=== PATIENT | male | born 1985 | race Caucasian/White ===

== ENCOUNTER 2018-03-01 11:41 | Emergency (ER) | payer MEDICARE, SELFPAY ==
[2018-03-01 11:42] VITALS: BP 122/69; PULSE 83; RESP 16; TEMP 37.1; O2SAT 98; BMI 31.1
--- NOTE | 2018-03-01 11:59 | ED.VISSUMM ---
- ER Visit Summary Date of Service: 03/01/18 Chief Complaint: Lower back pain History of Present Illness: The patient is a 32 M with a history of chronic lumbar back pain since age 17 when he suffered a fall. He had an MRI that revealed 2 abnormal discs at that time. He has not followed up but he has had continued low back pain nearly every day since then since then, sometimes worse when he does a lot of lifting. He states that he has been lifting heavy boxes recently. The pain is worse when he bends forward and lifts. It occasionally radiates down both buttocks. No bowel bladder dysfunction. No groin paresthesias. Physical Examination: He has paraspinal lumbar tenderness bilaterally but worse on the right. No midline tenderness, erythema, or fluctuance. There is normal strength and sensation in both lower extremities. No clonus. Negative Babinski's. Reflexes are normal and symmetric. Test Results: None performed Emergency Department Course and Treatment: No evidence of cauda equina syndrome or paraspinal/epidural abscess. His pain was addressed with Norflex and Toradol. This is a chronic recurrent issue. I highly encouraged him to call his primary care physician today to get set up for an outpatient MRI but I do not feel he needs an emergent MRI. He will be given prescriptions. Treatment Plan: Prescriptions for Medrol Dosepak, naproxen, and Zanaflex. Follow up closely with his doctor. Disposition: Home stable condition Impression: Initial encounter acute on chronic back pain This note was generated with [employer] dictation software. It may contain incorrect words, spelling, and punctuation that were not noted in review of the chart prior to signing ED Disposition - Plan for ED Patient: Chief Complaint: Back Instructions: ED Low Back Pain Injury Prescriptions: MethylPREDNISolone DosePak [Medrol DosePak] 4 mg PO UD #1 box Naproxen [Naprosyn] 500 mg PO BID PRN #20 tablet Tizanidine HCl [Zanaflex] 4 mg PO TID #30 tablet Referrals: Care Physician,No Primary [Primary Care Provider] -
--- NOTE | 2018-03-01 12:05 | ED.DCSUM_ITS ---
- ER Visit Summary Date of Service: 03/01/18 Chief Complaint: Lower back pain History of Present Illness: The patient is a 32 M with a history of chronic lumbar back pain since age 17 when he suffered a fall. He had an MRI that revealed 2 abnormal discs at that time. He has not followed up but he has had continued low back pain nearly every day since then since then, sometimes worse when he does a lot of lifting. He states that he has been lifting heavy boxes recently. The pain is worse when he bends forward and lifts. It occasionally radiates down both buttocks. No bowel bladder dysfunction. No groin paresthesias. Physical Examination: He has paraspinal lumbar tenderness bilaterally but worse on the right. No midline tenderness, erythema, or fluctuance. There is normal strength and sensation in both lower extremities. No clonus. Negative Babinski 's. Reflexes are normal and symmetric. Test Results: None performed Emergency Department Course and Treatment: No evidence of cauda equina syndrome or paraspinal/epidural abscess. His pain was addressed with Norflex and Toradol. This is a chronic recurrent issue. I highly encouraged him to call his primary care physician today to get set up for an outpatient MRI but I do not feel he needs an emergent MRI. He will be given prescriptions. Treatment Plan: Prescriptions for Medrol Dosepak, naproxen, and Zanaflex. Follow up closely with his doctor. Disposition: Home stable condition Impression: Initial encounter acute on chronic back pain This note was generated with [employer] dictation software. It may contain incorrect words, spelling, and punctuation that were not noted in review of the chart prior to signing ED Disposition - Plan for ED Patient: Chief Complaint: Back Instructions: ED Low Back Pain Injury Prescriptions: MethylPREDNISolone DosePak [Medrol DosePak] 4 mg PO UD #1 box Naproxen [Naprosyn] 500 mg PO BID PRN #20 tablet Tizanidine HCl [Zanaflex] 4 mg PO TID #30 tablet Referrals: Care Physician,No Primary [Primary Care Provider] -
[2018-03-01] MEDS: Ketorolac 60 MG/2 ML Vial IM (12:09)
[2018-03-01] MEDS: Orphenadrine 60 MG/2 ML Ampul IM (12:10)
[2018-03-01 12:49] VITALS: PULSE 86; RESP 17; O2SAT 98
== END 2018-03-01 12:50 | disposition home or self-care (01) ==
LOC: ED 12:36
PROVIDERS: Emergency Provider Emergency Medicine; Family Provider Family Medicine; PCP Family Medicine
DX: G89.29 Other chronic pain (principal); M54.5 Low back pain; J45.909 Unspecified asthma, uncomplicated; Z72.0 Tobacco use
CPT/HCPCS: 99282

== ENCOUNTER 2018-03-05 10:42 | Emergency (ER) | payer MEDICARE, SELFPAY ==
[2018-03-05 10:43] VITALS: BP 124/64; PULSE 93; RESP 16; TEMP 37.2; O2SAT 98; BMI 30.8
--- NOTE | 2018-03-05 10:52 | ED.DCSUM_ITS ---
- ER Visit Summary Date of Service: 03/05/18 Chief Complaint: Cough, sore throat, sinus infection History of Present Illness: The patient is a 32 M who presents with the above complaints. Is been ongoing for 2 days. He states he has had sinus congestion, sore throat and a cough. His cough is productive of sputum. Throat hurts worse with swallowing. He did not check his temperature at home. He also complained of some body aches. He tried using Mucinex without relief. He states he had similar symptoms 3 weeks ago that improved with using eardrops. Physical Examination: Vital signs reviewed. HEENT exam shows swollen turbinates. He also has posterior oropharyngeal erythema. There is no tonsillar swelling or exudates. Heart is regular rate and rhythm without murmurs. Lungs are clear to auscultation. Abdomen is soft and nontender. Extremities reveal no edema. Skin exam normal. Neurologic exam normal. Test Results: None performed Emergency Department Course and Treatment: Patient likely has a viral etiology to his URI. I do not feel antibiotics are necessary at this time. He has normal vital signs and I do not feel the rapid strep or a chest x-ray as needed. He will be treated with Sudafed and Tessalon Perles. He will follow-up with his primary care physician. Treatment Plan: [] Disposition: Discharge Impression: Viral URI with cough This note was generated with [employer] dictation software. It may contain incorrect words, spelling, and punctuation that were not noted in review of the chart prior to signing ED Disposition - Plan for ED Patient: Chief Complaint: General Illness Referrals: Rei Saul MD [Primary Care Provider] -
--- NOTE | 2018-03-05 10:52 | ED.DEP ---
ED Disposition - Plan for ED Patient: Disposition: Home or Assisted Living Chief Complaint: General Illness Instructions: ED Upper Resp Infec No Abx Tx Prescriptions: Benzonatate [Tessalon Perle] 200 mg PO TID PRN PRN #20 cap PRN Reason: Cough Pseudoephedrine HCl [Sudafed 12 Hour] 120 mg PO Q12H #14 tablet.er Referrals: Rei Saul MD [Primary Care Provider] -
== END 2018-03-05 10:58 | disposition home or self-care (01) ==
PROVIDERS: Emergency Provider Emergency Medicine; Family Provider Family Medicine; PCP Family Medicine
DX: J06.9 Acute upper respiratory infection, unspecified (principal); R05 Cough; J45.909 Unspecified asthma, uncomplicated; Z72.0 Tobacco use
CPT/HCPCS: 99282

== ENCOUNTER → 2018-03-21 17:29 | Outpatient (CLI) | payer MEDICARE, SELFPAY ==
--- NOTE | 2018-03-21 17:43 | RAD_ITS ---
STUDY: X-RAY - LUMBAR SPINE REASON FOR EXAM: Male, 32 years old. Pain TECHNIQUE: 5 view(s) of the lumbar spine were obtained. COMPARISON: None FINDINGS: Normal lumbar lordosis. There is no substantial scoliosis. There is a normal alignment of the vertebrae. Normal vertebral bodies. Mild spurring from T12 to L2 endplates. Normal disc space heights. The soft tissue structures are unremarkable. RAD/L/S Spine Min 4 Views IMPRESSION: Mild degenerative changes of the lumbar spine. Electronically Signed: Naga Benites DO at 22:49 EDT Tel [phone], Service support ,
== END ==
PROVIDERS: Family Provider Family Medicine; PCP Family Medicine; Visit Provider Family Medicine
DX: M54.5 Low back pain (principal); G89.29 Other chronic pain
CPT/HCPCS: 72110

== ENCOUNTER → 2018-04-01 17:13 | Outpatient (CLI) | payer MEDICARE, SELFPAY ==
--- NOTE | 2018-04-01 17:16 | MRI_ITS ---
STUDY: MRI LUMBAR SPINE WITHOUT CONTRAST REASON FOR EXAM: Male, 32 years old. Low back pain and sciatica TECHNIQUE: Standardized fat and water weighted pulse sequences were obtained in the sagittal and axial planes. COMPARISON: None FINDINGS: T12-L1: Normal endplates. Normal disc height, hydration and morphology. Normal bilateral facet joints. Normal central canal and bilateral lateral recesses. Normal bilateral intervertebral neural foramina. Normal lumbar lordosis. There is no substantial scoliosis. Normal conus medullaris that terminates at T12-L1 L1-2: Normal endplates. Normal disc height, hydration and morphology. Normal bilateral facet joints. Normal central canal and bilateral lateral recesses. Normal bilateral intervertebral neural foramina. L2-3: Normal endplates. Normal disc height, hydration and morphology. Normal bilateral facet joints. Normal central canal and bilateral lateral recesses. Normal bilateral intervertebral neural foramina. L3-4: Normal endplates. Normal disc height, hydration and minimal annular bulge.. Normal bilateral facet joints. Normal central canal and bilateral lateral recesses. Normal bilateral intervertebral neural foramina. L4-5: Normal endplates. Normal disc height, hydration and minimal annular bulge.. Normal bilateral facet joints. Normal central canal and bilateral lateral recesses. Normal bilateral intervertebral neural foramina. L5-S1: Normal endplates. Normal disc height, hydration and minimal annular bulge. Normal bilateral facet joints. Normal central canal and bilateral lateral recesses. Normal bilateral intervertebral neural foramina. Normal visualized sacral ala. Small Tarlov cyst in the sacral canal likely of no significance Normal visualized paraspinous soft tissue structures. MRI/Spine Lumbar (Routine) IMPRESSION: No evidence for acute fracture or other significant bony pathology. Minimal bulging annuli at L3-4 and L4-5 and L5-S1 without evidence for spinal stenosis Electronically Signed: Azar Taylor MD at 18:19 EDT , Service support ,
== END ==
PROVIDERS: Family Provider Family Medicine; PCP Family Medicine; Referring Provider Family Medicine; Visit Provider Family Medicine
DX: M54.5 Low back pain (principal); G89.29 Other chronic pain
CPT/HCPCS: 72148

== ENCOUNTER 2018-07-13 12:36 | Emergency (ER) | payer MEDICARE, SELFPAY ==
[2018-07-13 12:37] VITALS: BP 130/62; PULSE 71; RESP 16; TEMP 36.7; O2SAT 97; BMI 33.2
--- NOTE | 2018-07-13 13:15 | ED.DCSUM_ITS ---
- ER Visit Summary Date of Service: 07/13/18 Chief Complaint: Diarrhea History of Present Illness: The patient is a 32 M presenting with diarrhea for the past week. Patient states he had 2 episodes of diarrhea today. He had 5-6 episodes of diarrhea yesterday. He denies vomiting, complains of nausea. He denies abdominal pain. Denies fever. He denies sick contacts. He has not had any recent antibiotics. Denies possibility of bad food exposure. Denies other complaints. Physical Examination: Vitals are stable. Patient is afebrile. Alert no acute distress. HEENT exam is unremarkable. Neck is supple. Lungs are clear and equal bilaterally. Heart is regular rate and rhythm. Abdomen is soft nontender nondistended. No rebound or guarding Extremities are unremarkable. Skin is warm and dry. Remainder of exam is unremarkable. Emergency Department Course and Treatment: Patient was given IV fluids, Zofran. CBC, chemistries unremarkable. Stool studies were sent. Patient is advised to continue drinking plenty of fluids. He is given a prescription for Zofran. Advised to follow-up with Dr. Mejía employee relations director for no doc. Advised return to ED if worsening complaints. Disposition: Discharge home Impression: Diarrhea This note was generated with [employer] dictation software. It may contain incorrect words, spelling, and punctuation that were not noted in review of the chart prior to signing ED Disposition - Plan for ED Patient: Instructions: ED Vomiting Diarrhea Nonspecific Ad Prescriptions: Ondansetron [Zofran Odt] 4 mg PO Q8H PRN PRN #10 tablet PRN Reason: Nausea Referrals: Rajan Mejía DO [STAFF PHYSICIAN] -
[2018-07-13 13:33] LABS: Absolute Lymphocyte Count 1.61 X10^3/ul (0.83-4.51); Absolute Neutrophil Count 4.1 X10^3/uL (2.0-7.7); Basophil# 0.03 X10^3/uL; Basophil% 0.5 % (0-1); Hematocrit 45.2 % (40-54); Hemoglobin 16.4 g/dl (13.0-16.5); Lymphocyte # 1.61 X10^3/ul (4.0); Lymphocyte % 26.2 % (19-41); Mean Corp Hgb Conc 36.3 g/gl (32-36); Mean Corpuscular Hgb 31.2 pg (27.0-32.0); Mean Corpuscular Volume 85.9 fL (80-94); Mean Platelet Vol. 10.4 fl (6.2-12.0); Monocyte# 0.43 X10^3/uL; Neutrophil # 4.07 X10^3/uL (2.7-7.7); Neutrophil % 66.3 % (47-70); Platelet Count 226 K/mm3 (150-450); RBC Distribution Width CV 12.6 % (11.6-14.6); RBC Distribution Width SD 39.6 fl (35.1-43.9); Red Blood Count 5.26 M/mm3 (4.6-6.2); White Blood Count 6.1 K/mm3 (4.4-11.0)
[2018-07-13 13:34] LABS: POSITIVE COUNT NO; POSITIVE DIFFERENTIAL NO; POSITIVE MORPHOLOGY NO
[2018-07-13] MEDS: Ondansetron 4 MG/2 ML Vial IV (13:34)
[2018-07-13] MEDS: 0.9% Normal Saline 1,000 ML 1000 ML IV (13:34)
[2018-07-13 13:50] LABS: Anion Gap 7 (5-15); BUN 12 mg/dL (7-18); Chloride 107 mmol/L (98-107); EST Glomerular Filtration Rate 92 mL/min (>60); Est Glom Filt Rate - Afr Amer 112 mL/min (>60); Estimated Creatinine Clearance 96.59 ml/min; Glucose 79 mg/dL (74-106); Potassium 3.9 mmol/L (3.5-5.1); Sodium Level 144 mmol/L (136-145)
--- NOTE | 2018-07-13 13:55 | ED.DEP ---
ED Disposition - Plan for ED Patient: Instructions: ED Vomiting Diarrhea Nonspecific Ad Prescriptions: Ondansetron [Zofran Odt] 4 mg PO Q8H PRN PRN #10 tablet PRN Reason: Nausea Referrals: Rajan Mejía DO [STAFF PHYSICIAN] -
[2018-07-13 14:18] VITALS: BP 110/61; PULSE 57; RESP 16; O2SAT 99
== END 2018-07-13 14:19 | disposition home or self-care (01) ==
PROVIDERS: Emergency Provider Emergency Medicine
DX: R19.7 Diarrhea, unspecified (principal); R11.0 Nausea; Z72.0 Tobacco use
CPT/HCPCS: 80048; 85025; 87493; 87506; 96361; 96374; 99283; J7030; J2405

== ENCOUNTER 2018-09-09 11:50 | Emergency (ER) | payer MEDICARE, SELFPAY ==
[2018-09-09 11:51] VITALS: BP 119/75; PULSE 71; RESP 17; TEMP 36.3; O2SAT 99; BMI 33.0
--- NOTE | 2018-09-09 12:31 | RAD_ITS ---
STUDY: X-RAY - LEFT ANKLE REASON FOR EXAM: Male, 32 years old. Pain. No known injury. TECHNIQUE: 3 view(s) of the ankle. COMPARISON: None. FINDINGS: Normal visualized distal tibia and fibula. Normal medial and lateral malleoli. Normal tibiotalar articulation and ankle mortise. Normal visualized talus and calcaneus. The visualized subtalar, talonavicular, calcaneocuboid and tarsal articulations are normal. The soft tissue structures are unremarkable. RAD/Ankle min 3 Views IMPRESSION: Normal x-ray examination of the ankle. Electronically Signed: Justin Harrison, at 13:26 EDT , Service support ,
--- NOTE | 2018-09-09 12:31 | ED.VISSUMM ---
- ER Visit Summary Date of Service: 09/09/18 Chief Complaint: Left foot pain History of Present Illness: The patient is a 32 M who presents with left foot pain that began yesterday while playing paint ball. Patient is unsure exactly how he injured it. Patient states the pain is worse today. Patient states the pain is worse with weightbearing. Patient denies any paresthesias or weakness. Patient describes pain as aching and throbbing. Patient denies any pain over the proximal fibula. Physical Examination: No signs are stable. Patient is afebrile. Patient is in no acute distress. Musculoskeletal exam reveals tenderness over the left ankle and hindfoot. There is no edema noted. There is no bony crepitance or step-off noted. There is no deformity noted. Range of motion was limited in all motions of the left ankle secondary to pain. Pedal pulses were equal bilateral. Sensation was intact to light touch in all digits. Test Results: X-rays of the left ankle were obtained. There is no acute fracture noted. Emergency Department Course and Treatment: Patient was given an Aircast. Patient was instructed to ice and elevate the left ankle. Patient was given a prescription for Naprosyn. Patient was instructed to follow-up with his primary care physician in 5-7 days. Patient understood and was agreeable with the plan. All questions were answered. Disposition: Discharge home Impression: Left ankle sprain This note was generated with [employer] dictation software. It may contain incorrect words, spelling, and punctuation that were not noted in review of the chart prior to signing ED Disposition - Plan for ED Patient: Disposition: Home or Assisted Living Instructions: ED Sprain Ankle W X Ray Prescriptions: Naproxen [Naprosyn] 500 mg PO BID PRN #20 tab Referrals: Care Physician,No Primary [Primary Care Provider] - Everett Schroeder MD [STAFF PHYSICIAN] - 1 Week
[2018-09-09 14:18] VITALS: PULSE 70; RESP 16
== END 2018-09-09 14:18 | disposition home or self-care (01) ==
PROVIDERS: Emergency Provider Emergency Medicine
DX: S93.402A Sprain of unspecified ligament of left ankle, initial encounter (principal); X58.XXXA Exposure to other specified factors, initial encounter; Y93.89 Activity, other specified; Y92.89 Other specified places as the place of occurrence of the external cause; Y99.9 Unspecified external cause status; Z72.0 Tobacco use
CPT/HCPCS: 73610; 99283

== ENCOUNTER 2018-10-15 14:23 | Emergency (ER) | payer MEDICARE, SELFPAY ==
[2018-10-15 14:24] VITALS: BP 119/68; PULSE 63; RESP 16; TEMP 36.6; O2SAT 98; BMI 31.8
[2018-10-15 14:38] VITALS: BP 123/75; PULSE 66; RESP 18; O2SAT 96
--- NOTE | 2018-10-15 14:41 | ED.VISSUMM ---
- ER Visit Summary Date of Service: 10/15/18 Chief Complaint: [Left foot pain] History of Present Illness: The patient is a 32 M [presents the ER with complaint of left foot pain that he has had for about 7 weeks. Patient states that he initially sustained an injury 7 weeks ago while playing [employer]. Patient felt like he twisted the foot. Patient was seen in the emergency department 1 month ago and had x-rays of his ankle which were unremarkable and was given an Aircast. Patient has not followed up regarding the injury with anybody. Patient complains of pain with standing and walking. He has been taking Aleve and ibuprofen and not getting any pain relief.] Physical Examination: [Left foot-patient has tenderness inferior to the medial malleolus and midfoot plantar aspect. There is some faint soft tissue swelling noted. Dehydrated no ecchymosis or bruising noted. He is neurovascular intact distally. Minimal tenderness over the base of the fifth metatarsal and no tenderness over the lateral malleolus. Renal function patient has normal pulses and cap refill. Patient is able to move all toes without difficulty.] Test Results: [X-rays of the left foot obtained and was normal] Emergency Department Course and Treatment: [] Treatment Plan: [Patient will be given a prescription for a few [place] for pain and referred to podiatry for follow-up.] Disposition: [Discharged home in stable condition] Impression: [Left foot pain-etiology uncertain] This note was generated with [employer] dictation software. It may contain incorrect words, spelling, and punctuation that were not noted in review of the chart prior to signing ED Disposition - Plan for ED Patient: Referrals: Care Physician,No Primary [Primary Care Provider] -
--- NOTE | 2018-10-15 14:55 | RAD_ITS ---
STUDY: X-RAY - LEFT FOOT CLINICAL: Male, 32 years old. Left foot pain. TECHNIQUE: 3 view(s) of the foot. COMPARISON: None. FINDINGS: Normal talus, calcaneus, and tarsal bones. Normal visualized subtalar, talonavicular, calcaneocuboid, tarsal and tarsometatarsal articulations. Normal metatarsi. Normal metatarsophalangeal joint of the great toe. Normal tibial and fibular sesamoid bones. Normal interphalangeal joint of the great toe. Normal phalanges of the great toe. Normal second through fifth metatarsophalangeal joints. Normal interphalangeal joints and phalanges of the lesser toes. The soft tissue structures are unremarkable. RAD/Foot min 3 Views IMPRESSION: Normal x-ray examination of the foot. Electronically Signed: Justin Harrison, at 15:30 EDT , Service support ,
--- NOTE | 2018-10-15 15:02 | NURSING ---
pt walked out to lobby and stated that have to go out front for a minute when asked if pt had xrays stated, no. rn informatics aware .
--- NOTE | 2018-10-15 15:38 | ED.DEP ---
ED Disposition - Plan for ED Patient: Instructions: ED Sprain Foot Prescriptions: Hydrocodone Bitart/Apap 5-325 [Zavalla 5MG-325MG] 1 tab PO Q4H PRN PRN 2 Days #10 tab PRN Reason: Pain Referrals: Care Physician,No Primary [Primary Care Provider] - Nisreen Harris DPM [STAFF PHYSICIAN] - 3-5 Days
== END 2018-10-15 15:46 | disposition home or self-care (01) ==
LOC: ED 15:27
PROVIDERS: Emergency Provider Emergency Medicine
DX: M79.672 Pain in left foot (principal); Z72.0 Tobacco use
CPT/HCPCS: 73630; 99282

== ENCOUNTER 2019-08-08 17:52 | Emergency (ER) | payer MEDICARE, MEDICAID, SELFPAY ==
[2019-08-08 17:54] VITALS: BP 125/78; PULSE 68; RESP 16; TEMP 36.8; O2SAT 97; BMI 30.4
[2019-08-08 18:05] VITALS: PULSE 68; RESP 16; TEMP 36.8
--- NOTE | 2019-08-08 18:06 | ED.DCSUM_ITS ---
- ER Visit Summary Date of Service: 08/08/19 Chief Complaint: [Redness and swelling to right groin] History of Present Illness: The patient is a 33 M [presents to the emergency department with a lesion to his right groin that he is had for 2 to 4 weeks. Patient states that it gets better then gets worse again. Recently he is tried to susy it with a needle and is only gotten small amount of blood out of it. He is a carrier of staph he tells me. He denies any fevers or chills or sweats. Patient has otherwise no medical history.] Physical Examination: [HEENT-PERRLA, EOMI. Cranial nerves II through XII grossly intact. TMs clear. Mucous membranes moist. No adenopathy. Cardiovascular-regular rate and rhythm without murmur or ectopy Lungs-clear to auscultation, chest wall stable without crepitus or subcu emphysema Abdomen-normoactive bowel sounds, soft, nontender, no rebound or rigidity, no peritoneal signs. Extremities-intact ?4, normal range of motion, normal pulses, atraumatic. Right groin-patient has a small soft tissue abscess measuring about 1 cm in diameter the central portion of which is excoriated and it is firm. There is no fluctuance. There is no significant cellulitis. Minimally tender.] Test Results: [None indicated] Emergency Department Course and Treatment: [At this point patient is attempted to I&D it himself and only got them a small amount of blood out of it. I really do not think that attempting to open it further will produce much in the way of results. I recommended sitz bath's and treatment with clindamycin. Patient to follow-up with primary care physician in 3 to 5 days. Patient advised to return if increased redness, swelling, fluctuance, fevers, or condition should worsen anyway.] Treatment Plan: [Treatment with clindamycin and sitz bath's] Disposition: [Discharged home in stable condition] Impression: [Right groin soft tissue abscess-antibiotic treatment only] This note was generated with [employer] software. It may contain incorrect words, spelling, and punctuation that were not noted in review of the chart prior to signing ED Disposition - Plan for ED Patient: Referrals: NOT,DEFINED [Primary Care Provider] -
--- NOTE | 2019-08-08 18:08 | ED.DEP ---
ED Disposition - Plan for ED Patient: Instructions: ABSCESS, Antiobiotic Treatment Only Prescriptions: Clindamycin HCl [Cleocin] 300 mg PO Q6H #40 cap Transmission Status: Pending to [id number] Referrals: NOT,DEFINED [Primary Care Provider] - 3-5 Days
[2019-08-08] MEDS: Clindamycin HCl 150 MG Capsule 300 MG PO (18:14)
[2019-08-08 18:22] VITALS: PULSE 68; RESP 16; O2SAT 97
== END 2019-08-08 18:30 | disposition home or self-care (01) ==
LOC: ED 18:28
PROVIDERS: Emergency Provider Emergency Medicine
DX: L02.214 Cutaneous abscess of groin (principal); Z72.0 Tobacco use
CPT/HCPCS: 99284

== ENCOUNTER 2020-01-31 13:02 | Emergency (ER) | payer MEDICARE, MEDICAID, SELFPAY ==
[2020-01-31 13:04] VITALS: BP 92/43; PULSE 99; RESP 20; TEMP 36.4; O2SAT 99; BMI 25.0
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
[2020-01-31] MEDS: fentaNYL 100 MCG/2 ML Ampul 50 MCG IV (13:24)
[2020-01-31] MEDS: 0.9% Normal Saline 1,000 ML 1000 ML IV ×2 (13:24→13:25)
[2020-01-31] MEDS: Diphth,Pertuss(Acell),Tet Vac 0.5 ML Vial IM (13:27)
[2020-01-31 13:30] LABS: Absolute Lymphocyte Count 3.59 X10^3/uL (0.83-4.51); Absolute Neutrophil Count 9.9 X10^3/uL (2.0-7.7); Basophil# 0.05 X10^3/uL; Basophil% 0.3 % (0-1); Hemoglobin 15.4 g/dL (13.0-16.5); Lymphocyte # 3.59 X10^3/ul (4.0); Lymphocyte % 24.3 % (19-41); Mean Corpuscular Hgb 30.7 pg (27.0-32.0); Mean Corpuscular Volume 87.6 fL (80-94); Mean Platelet Vol. 10.3 fl (6.2-12.0); Monocyte# 0.94 X10^3/uL; Monocyte% 6.4 % (0-10); NRBC Flagged by Analyzer 0 % (0-5); Neutrophil # 9.93 X10^3/uL (2.7-7.7); Platelet Count 380 K/mm3 (150-450); RBC Distribution Width CV 13.2 % (11.6-14.6); RBC Distribution Width SD 42.2 fl (35.1-43.9); Red Blood Count 5.02 M/mm3 (4.6-6.2); White Blood Count 14.8 K/mm3 (4.4-11.0)
[2020-01-31 13:31] VITALS: BP 104/64; PULSE 80; RESP 18; O2SAT 99
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
--- NOTE | 2020-01-31 13:34 | CT_ITS ---
STUDY: CT CERVICAL SPINE WITHOUT CONTRAST REASON FOR EXAM: Male, 34 years old. Trauma RADIATION DOSAGE (If Supplied By Facility): CTDIvol = ( 19.45 ) mGy, DLP = ( 392.15 ) mGycm TECHNIQUE: High resolution transaxial imaging was performed without contrast material. Sagittal and coronal images were reconstructed. Individualized dose optimization techniques were used for this CT. COMPARISON: None FINDINGS: Craniocervical junction and cervical spine are intact and aligned. Mineralization is normal. Paraspinous soft tissues are normal. Spinal canal is patent at all levels. Neural foramina are patent. CT/Spine Cervical without Contras IMPRESSION: 1. Unremarkable cervical spine. Electronically Signed: Shandra Santo, at 14:30 EDT Tel , Service support ,
[2020-01-31 13:39] LABS: International Normalized Ratio 1.1; Partial Thromboplast Time 28.2 Seconds (24.1-36.2)
[2020-01-31] MEDS: Morphine 4 MG/ML Syringe IV (13:43)
[2020-01-31 13:49] LABS: AST(SGOT) 77 U/L (15-37); Alanine Aminotransfer ALT/SGPT 45 U/L (16-61); Albumin, Serum 3.4 g/dL (3.2-5.0); Alkaline Phosphatase 69 U/L (45-117); Anion Gap 11 (5-15); BUN 9 mg/dL (7-18); BUN/Creat Ratio 6.1 RATIO (10-20); Calcium,Total 9.1 mg/dL (8.5-10.1); Chloride 113 mmol/L (98-107); Creatinine, Serum 1.47 mg/dL (0.70-1.30); EST Glomerular Filtration Rate 59 mL/min (>60); Est Glom Filt Rate - Afr Amer 71 mL/min (>60); Estimated Creatinine Clearance 62.17 ml/min; Globulin 3.5 g/dL (2.2-4.2); Glucose 127 mg/dL (74-106); Lipase 129 U/L (73-393); Potassium 3.3 mmol/L (3.5-5.1); Protein, Total 6.9 g/dL (6.4-8.2); Sodium Level 145 mmol/L (136-145)
[2020-01-31 13:51] VITALS: BP 104/64; PULSE 75; RESP 10; O2SAT 100
[2020-01-31 13:58] LABS: Alcohol, Blood (Medical)-Serum < 3.0 mg/dL
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
--- NOTE | 2020-01-31 14:04 | ED.RN ---
attempted to call emergency contact. number is wrong. pt doesnt know what the number is
[2020-01-31] MEDS: Cefazolin 2 GM in 0.9% Normal Saline 100 ML IV (14:09)
== END 2020-01-31 14:17 | disposition short-term general hospital (02) ==
PROVIDERS: Emergency Provider Emergency Medicine
DX: S82.302A Unspecified fracture of lower end of left tibia, initial encounter for closed fracture (principal); S82.492A Other fracture of shaft of left fibula, initial encounter for closed fracture; S70.211A Abrasion, right hip, initial encounter; S81.811A Laceration without foreign body, right lower leg, initial encounter; S32.302A Unspecified fracture of left ilium, initial encounter for closed fracture; V13.9XXA Unspecified pedal cyclist injured in collision with car, pick-up truck or van in traffic accident, initial encounter; Y93.55 Activity, bike riding; Y92.9 Unspecified place or not applicable; Z23 Encounter for immunization; F17.200 Nicotine dependence, unspecified, uncomplicated
CPT/HCPCS: 29515; 70450; 71045; 71260; 72125; 72170; 73600; 74177; 80053; 80320; 83690; 84484; 85025; 85610; 85730; 90715; 99285; J7030; Q9967; A4216; G0480

== ENCOUNTER 2020-06-18 04:21 | Emergency (ER) | payer MEDICARE, MEDICAID, SELFPAY ==
[2020-06-18 04:23] VITALS: PULSE 113; RESP 16; TEMP 37; O2SAT 99; BMI 26.4
--- NOTE | 2020-06-18 04:36 | ED.VIS.GEN ---
History of Present Illness Chief Complaint: Abscess Informant: Patient Narrative: 34-year-old male presents out of concern for abscess of the right forearm. He tells me the symptoms started last night. He states he has been squeezing to try to get pus out of it. He notes the redness is rapidly spread. No fevers. 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 He denies being an IV drug user. Past Medical History - Allergies and Home Meds Allergies/Adverse Reactions: Allergies No Known Allergies Allergy (Verified 06/18/20 04:27) Past Medical History: - - MRSA Surgical History: noncontributory Smoking Status: Current every day smoker Drugs: None Review of Systems General: Denies: Chills, Fever, Sweats Eyes: Denies: Visual changes - bilaterally, Diplopia ENT: Denies: Rhinorrhea, Sore throat Cardiovascular: Denies: Chest pain, Palpitations Respiratory: Denies: Dyspnea, Cough, Dyspnea on exertion Gastrointestinal: Denies: Abdominal pain, Nausea, Vomiting, Diarrhea, Melena, Hematochezia Genitourinary: Denies: Dysuria, Hematuria, Frequency Musculoskeletal: Denies: Back pain, Extremity Pain Skin: Reports: Rash, Abscess. Denies: Wounds Neurological: Denies: Headache, Weakness, Numbness Physical Exam Vital Signs/Narrative: Vital Signs Temp Pulse Resp Pulse Ox 06/18/20 04:23 98.6 F 113 H 16 99 Inital Vital Signs reviewed: Yes General: Well nourished, Well developed, No Acute Distress Head: Normocephalic, Atraumatic Eyes: Perrl, EOMI ENT: Moist mucous membranes, No rhinorrhea Neck: Supple, Nontender Cardiovascular: Regular rate, Regular rhythm, No murmurs Respiratory: No distress, CTA bilaterally, Chest nontender Abdomen: Soft, Nontender, Nondistended, Normal bowel sounds Back: Nontender, Normal Inspection Extremities: Tenderness - No lymphangitic streaking. Right anterior forearm demonstrates a 8 cm area of erythema. There is some induration around a 4 mm round hole that has dried blood on it. I do not appreciate any fluctuance. Skin: Normal color Neurological: Alert, Oriented x3, Cranial nerves II-XII grossly intact, Normal Strength, Normal Sensation Psychological: Normal affect, Normal Mood Diagnostic/Tx/Re-eval - Medical Decision Making Patient is very defensive argumentative and is not forthcoming with information. He was informed that he came to us looking for help with his medical condition and that if he wants to be that way he is free to leave but if he wishes to stay and get care he needs to do so in a respectful manner. Bedside ultrasound I do not see a large collection of fluid that would be easily drained. There is certainly edema in the soft tissues. Therefore blood work was ordered and I informed the patient that he most likely would require admission with IV antibiotics. He tells me he does not feel like sitting here all night long. He states he wants to go get a second opinion. Told him that his his choice but I think getting IV antibiotics and blood work and probable admission is the better option. He is going to sign out AMA. I will write for him to have Keflex and Bactrim. I have tried multiple times to explain to him the difference for an abscess and cellulitis. I tried to explain to him the difference between a focal collection of pus that is easily drained and infection is spreading throughout his skin. This seems to be falling on deaf ears because he says the same thing each time and that is he does not want to sit in the emergency department. Patient appears to have capacity to sign out AMA. ED Disposition - Plan for ED Patient: Disposition: Against Medical Advice Diagnosis: Cellulitis of right forearm Instructions: ED Abscess Antibiotic Treatment Only, ED Cellulitis Prescriptions: Smz/Tmp Ds [Bactrim Ds] 1 tab PO BID #20 tab Prescription Printed Cephalexin [Keflex] 500 mg PO Q6 #40 cap Prescription Printed Oxycodone HCl/Acetaminophen [Percocet 5/325] 1 tab PO Q6H PRN PRN 3 Days #12 tab PRN Reason: Pain Prescription Printed Additional Instructions: A abscess may form given how rapidly you tell me this came up. As discussed based on the ultrasound I feel that antibiotics are the better option. If you change your mind and wish to complete your evaluation you may return.
[2020-06-18] MEDS: Cephalexin 250 MG Capsule 500 MG PO (05:16)
[2020-06-18] MEDS: Smz/Tmp Ds Tablet 2 TABLET PO (05:16)
--- NOTE | 2020-06-18 05:21 | ED.RN ---
PT VOICED THAT HE JUST WANTED TO HAVE MY FUCKING ARM DRAIN. RE-ITERATED TO THE PT WHAT THE MD HAD ALREADY INSTRUCTED HIM ABOUT WHY HE COULD NOT. PT REFUSED THE IV AND BLOOD WORK BECAUSE HE JUST WANTED ANTIBIOTICS.STATED HE WOULD SEE HIS PCP.
[2020-06-18 05:28] VITALS: PULSE 112; RESP 18; O2SAT 96
== END 2020-06-18 05:29 | disposition left against medical advice (07) ==
LOC: ED 05:28
PROVIDERS: Emergency Provider Emergency Medicine
DX: L03.113 Cellulitis of right upper limb (principal); F17.200 Nicotine dependence, unspecified, uncomplicated; Z22.322 Carrier or suspected carrier of Methicillin resistant Staphylococcus aureus
CPT/HCPCS: 99283